=== PATIENT | male | born 2005 | race Caucasian/White ===

== ENCOUNTER 2024-03-01 10:32 | Emergency (ER) | payer MEDICAID, SELFPAY ==
[2024-03-01 10:37] VITALS: BP 115/74; PULSE 59; RESP 17; TEMP 36.8; O2SAT 99; BMI 17.1
--- NOTE | 2024-03-01 13:17 | ED_ITS ---
HPI - Wound/Laceration General: Chief Complaint: Wound/Laceration Stated Complaint: lac behind ear Time Seen by Provider: 03/01/24 13:09 Source: patient Mode of arrival: ambulatory Limitations: no limitations History of Present Illness: 18-year-old male who states this morning a closet door and fell and hit him behind his right ear on his head he denies any loss of consciousness has a slight headache denies any vomiting is unsure when his last tetanus was there is no bleeding at this time Associated symptoms: Denies chills, fever(s), nausea or vomiting Related Data Allergies Allergy/AdvReac Type Severity Reaction Status Date / Time No Known Allergies Allergy Verified 03/01/24 10:40 Review of Systems Const: Denies: fever(s), chills, body aches or change in appetite ENMT: Denies: throat pain or dental pain Card: Denies: chest pain Resp: Denies: dyspnea GI: Denies: abdominal pain, nausea, vomiting or diarrhea Musc: Denies: neck pain or back pain Skin/Breast: Denies: rash Neuro: Denies: headache(s) Physical Exam Const: COMMON NORMALS: no acute distress, patient oriented x3 and healthy appearing HENMT: COMMON NORMALS: normocephalic HEAD & SCALP: normocephalic Eye: COMMON NORMALS: Equal, round and reactive pupils present and EOMs intact bilaterally PUPIL: Yes Equal, round and reactive pupils present Neck/C-Spine: COMMON NORMALS: full ROM and supple Chest: COMMONS NORMALS: normal inspection of the chest Resp: COMMON NORMALS: normal respiratory effort Extremity: COMMON NORMALS: normal to inspection and full ROM Neuro: COMMON NORMALS: patient oriented x3, moves all extremities and no focal motor deficits Psych: COMMON NORMALS: mental status grossly normal, Normal thought process present and cooperative THOUGHT PROCESS: Normal thought process present Skin: COMMON NORMALS: no rashes or lesions noted NARRATIVE SKIN EXAM: Superficial laceration roughly 1 cm behind the right ear no bleeding at this time GENERAL SKIN EXAM: no rashes or lesions noted Course Vital Signs: Vital signs: Vital Signs Temperature 98.2 F 03/01/24 10:37 Pulse Rate 59 L 03/01/24 10:37 Respiratory Rate 17 03/01/24 10:37 Blood Pressure 115/74 03/01/24 10:37 Pulse Oximetry 99 03/01/24 10:37 Oxygen Delivery Me thod Room Air 03/01/24 10:37 MDM - Wound/Laceration Medical Decision Making Patient presents here with a superficial laceration does not require closed we will update his tetanus he has no signs of any major head injury does not require head CT he stable for discharge follow-up with PCP return if worsening. Medical Records I reviewed the patient's medical records. No radiology studies performed this visit Discharge Plan Discharge Patient Disposition: Home Clinical Impression: Laceration Condition: Stable Discharge Orders: Discharge ED (Routine); Ordered 03/01/24 Ordered By: Sabas Beth Discharge Diet: Advance as tolerated Discharge Activity: Resume usual activity Patient Instructions: Laceration (ED), Laceration Without Closure (ED) Coding Level of Care Code ED Experience Design Director for [facility]
--- NOTE | 2024-03-01 13:21 | PC.NURSE ---
PATIENT STATED THAT HE WANTED TO REFUSE TETANUS VACCINATION AT THIS TIME. NURSE GAVE EDUCATION ON PURPOSE AND REASON FOR VACCINATION AND EDUCATION FOR OUTCOMES. PATIENT STILL DECLINED VACCINATION. DR. MADERA INFORMED.
== END 2024-03-01 13:30 | disposition home or self-care (01) ==
PROVIDERS: Emergency Provider Emergency Medicine
DX: S01.01XA Laceration without foreign body of scalp, initial encounter (principal); W20.8XXA Other cause of strike by thrown, projected or falling object, initial encounter
CPT/HCPCS: 99283

== ENCOUNTER 2024-05-11 19:13 | Emergency (ER) | payer MEDICAID, SELFPAY ==
[2024-05-11 19:24] VITALS: BP 113/70; PULSE 53; RESP 16; TEMP 36.8; O2SAT 100
--- NOTE | 2024-05-11 20:04 | XRR_ITS ---
PROCEDURE INFORMATION: Exam: XR Chest Exam date and time: 05/11/2024 8:13 PM Age: 18 years old Clinical indication: Shortness of breath; Additional info: SOB TECHNIQUE: Imaging protocol: Radiologic exam of the chest. Views: 1 view. COMPARISON: No relevant prior studies available. FINDINGS: Lungs: Unremarkable. No consolidation. Pleural spaces: Unremarkable. No pleural effusion. No pneumothorax. Heart/Mediastinum: Unremarkable. No cardiomegaly. Bones/joints: Unremarkable. XR/XR chest 1V portable [id number] IMPRESSION: No acute findings.
--- NOTE | 2024-05-11 21:05 | W.ED.URI ---
HPI - URI/Sore Throat General: Chief Complaint: Airway/Esophagus Foreign Body Stated Complaint: inhaled something hurts to breathe and talk Time Seen by Provider: 05/11/24 20:20 Source: patient Mode of arrival: ambulatory Limitations: no limitations History of Present Illness: Patient is a 18-year-old male with no pertinent past medical history who reports to the emergency department complaining of inhaled foreign body a couple of hours prior to arrival. Patient states he was cleaning basement when he felt that he inhaled something suddenly, specifically thinking it was a metallic foreign body. He notes sudden onset of coughing afterwards that is since subsided. He notes that he has been able to continue keeping down fluids, has been handling his secretions well. Does not note any severe shortness of breath. He is breathing 100% on room air on triage, he notes he can still feel something tickling his throat. MD elicited complaint: other (Inhaled foreign body) Onset (ago): hour(s) Consistency: improved Severity: mild Associated symptoms: Deny abdominal pain, chills, chest pain, diarrhea, ear or mastoid pain, fever(s), headache(s), nausea or vomiting Related Data Allergies Allergy/AdvReac Type Severity Reaction Status Date / Time No Known Allergies Allergy Verified 05/11/24 19:28 Review of Systems General: Reports: 10 or more systems reviewed and unremarkable except in HPI and below Const: Denies: fever(s), chills or fatigue Eyes: Denies: change in vision ENMT: Denies: throat pain, ear or mastoid pain or nasal discharge Card: Denies: chest pain, palpitations, swelling of feet/ankles or lightheadedness Resp: Reports: non-productive cough and other (Inhaled foreign body); Denies: dyspnea or wheezing GI: Denies: abdominal pain, nausea, vomiting, diarrhea or constipation : Denies: flank pain, difficulty urinating, dysuria or urinary frequency Musc: Denies: neck pain, back pain or joint pain Skin/Breast: Denies: rash Neuro: Denies: headache(s), numbness in extremities or weakness in extremities Physical Exam Const: COMMON NORMALS: no acute distress and no limitations GENERAL APPEARANCE: cooperative, comfortable and well developed ORIENTATION/CONSCIOUSNESS: Yes awake OTHER: Nontoxic-appearing, breathing comfortably in no acute distress HENMT: COMMON NORMALS: normocephalic, atraumatic, hearing grossly normal bilaterally, Normal nasal mucous membranes and turbinates present, moist oral mucous membranes and oropharynx normal HEAD & SCALP: normocephalic and atraumatic NOSE: Normal nasal mucous membranes and turbinates present Eye: COMMON NORMALS: Equal, round and reactive pupils present, EOMs intact bilaterally and conjunctivae normal CONJUNCTIVA: Yes conjunctivae normal PUPIL: Yes Equal, round and reactive pupils present Neck/C-Spine: COMMON NORMALS: full ROM, supple and no JVD Resp: COMMON NORMALS: normal respiratory effort, No retractions, No use of accessory muscles and clear to auscultation bilaterally AUSCULTATION: clear to auscultation bilaterally Cardio: COMMON NORMALS: no JVD, regular rate, regular rhythm, No clicks present (Cardio), No murmurs present (Cardio) and No rub (Cardio) RATE: regular rate RHYTHM: regular rhythm Extremity: COMMON NORMALS: normal to inspection, full ROM and capillary refill normal Psych: COMMON NORMALS: mental status grossly normal and Normal thought process present THOUGHT PROCESS: Normal thought process present Skin: COMMON NORMALS: no rashes or lesions noted GENERAL SKIN EXAM: no rashes or lesions noted Course Vital Signs: Vital signs: Vital Signs Temperature 98.2 F 05/11/24 19:24 Pulse Rate 64 05/11/24 22:05 Respiratory Rate 16 05/11/24 22:05 Blood Pressure 113/70 05/11/24 19:24 Pulse Oximetry 99 05/11/24 22:05 Oxygen Delivery Me thod Room Air 05/11/24 19:24 MDM - URI/Sore Throat Medical Decision Making Patient reported inhaling unknown object in the basement while moving stuff around. Initially was coughing quite a bit but states that this has improved. His SpO2 was 100% on arrival, and physical exam unremarkable for any adventitious lung sounds. His chest x-ray was normal, and notably on recheck he is reporting more improvement. Unknown when he inhaled, could have envelopes an allergic type reaction. However instructed him to do supportive therapy and general return precautions were given. Lab Data Radiology Impressions Chest X-Ray 05/11/24 20:04 IMPRESSION: No acute findings. All radiology interpretation(s) finalized by discharge Discharge Plan Discharge Patient Disposition: Home Clinical Impression: Cough Qualifiers: Cough type: acute Qualified Code(s): R05.1 - Acute cough Condition: Stable Discharge Orders: Discharge ED (Routine); Ordered 05/11/24 Ordered By: Maxim Riggs Activity Restrictions/Additional Instructions: Please return with any fever, worsening shortness of breath, worsening cough, or other concerning symptoms you may have. Continue drinking plenty of fluids. Follow-up with primary care. Coding Level of Care Code ED Bilingual Medical Assistant for [facility]
[2024-05-11 22:05] VITALS: PULSE 64; RESP 16; O2SAT 99
== END 2024-05-11 22:06 | disposition home or self-care (01) ==
PROVIDERS: Emergency Provider Physician Assistant
DX: R05.1 Acute cough (principal)
CPT/HCPCS: 71045; 99283

== ENCOUNTER 2025-03-23 22:29 | Emergency (ER) | payer MEDICAID, SELFPAY ==
--- NOTE | 2025-03-23 22:31 | ED_ITS ---
HPI - General Adult General: Stated complaint: Left Hand finger Crushed Time Seen by Provider: 03/23/25 22:30 History of Present Illness: 19yo M w/cc of Related Data Previous Rx's ?Medication ?Instructions ?Recorded azithromycin 500 mg tablet 500 mg PO DAILY 5 days #5 t abs 02/03/25 prednisone 20 mg tablet 40 mg (2 x 20 mg) PO DAILY 5 days 02/03/25 #10 tabs Allergies Allergy/AdvReac Type Severity Reaction Status Date / Time No Known Allergies Allergy Verified 02/03/25 19:09 PFSH ED PFSH: Social History Smoking and tobacco/nicotine status: never used tobacco/nicotine Discharge Plan Discharge Condition: Stable Prescriptions: No Action prednisone 20 mg tablet 40 mg PO DAILY 5 Days Qty: 10 0RF azithromycin 500 mg tablet 500 mg PO DAILY 5 Days Qty: 5 0RF Print Language: Yemeni Coding Level of Care Code ED College Recruiter for [facility]
--- OUTSIDE RECORDS SUMMARY | 2025-03-23 22:38 | XMS_ITS | Patient Health Record ---
[facility] Address [address] [address] Care Team Providers Care Marketing Outreach Coordinator Name Role Phone Genevieve Mueller Unavailable [phone] Allergies No Known Allergies Reason For Referral No Information Social History Sex Assigned At : Social History Observation Description Sex Assigned At Male Plan Of Treatment No Information Insurance Providers Payer Name Payer Address Payer Phone Subscriber Number Group Number Insured Name Patient Relationship to Insured Coverage Start Date Coverage End Date [employer] [place] [address] [address] [place], [place] [id number] Karsten Davis Self - patient is the insured
[2025-03-23 22:43] VITALS: BP 131/81; PULSE 55; RESP 16; TEMP 36.6; O2SAT 97; BMI 19.5
--- NOTE | 2025-03-23 22:46 | XRR_ITS ---
PROCEDURE INFORMATION: Exam: XR Left Finger(s) Exam date and time: 03/23/2025 10:53 PM Age: 19 years old Clinical indication: Injury or trauma; Other: Crush injury; Crushing; Left; Ring finger; Additional info: 4th digit, please XR only digit, not the whole hand. TECHNIQUE: Imaging protocol: Radiologic exam of the left fingers. Views: Minimum 2 views. COMPARISON: No relevant prior studies available. FINDINGS: Bones/joints: Normal. Soft tissues: Normal. XR/XR finger LT min 2V [id number] IMPRESSION: No acute findings.
--- NOTE | 2025-03-23 22:47 | ED_ITS ---
HPI - General Adult General: Chief complaint: Wound/Laceration Stated complaint: Left Hand finger Crushed Time Seen by Provider: 03/23/25 22:30 History of Present Illness: 19yo M w/cc of crush injury from a machi ne at work to the distal L 4th digit and nail. Does not recall last tetanus update. No allergies to medications. Related Data Previous Rx's ?Medication ?Instructions ?Recorded azithromycin 500 mg tablet 500 mg PO DAILY 5 days #5 t abs 02/03/25 prednisone 20 mg tablet 40 mg (2 x 20 mg) PO DAILY 5 days 02/03/25 #10 tabs Allergies Allergy/AdvReac Type Severity Reaction Status Date / Time No Known Allergies Allergy Verified 02/03/25 19:09 PFS ED PFSH: Social History Smoking and tobacco/nicotine status: never used tobacco/nicotine Physical Exam Narrative: EXAM NARRATIVE: Vital signs were reviewed. Patient is alert and oriented. Patient is breathing comfortably, no increased WOB or accessory muscle use. SpO2 is above 95% on RA. No hypotension or tachycardia. There is a crush injury to the L 4th digit fingertip and subungual hematoma. Flexion/extension at PIP and DIP intact. Course Vital Signs: Vital signs: Vital Signs Temperature 97.8 F 03/23/25 22:43 Pulse Rate 55 L 03/23/25 22:43 Respiratory Rate 16 03/23/25 22:43 Blood Pressure 131/81 03/23/25 22:43 Pulse Oximetry 97 03/23/25 22:43 Oxygen Delivery Me thod Room Air 03/23/25 22:43 MDM - General Adult Medical Decision Making 19-year-old male with a chief complaint of crush injury to the distal tip of the L 4th digit. Frontal diagnosis includes but is limited to, fracture, dislocation, tendon tear or rupture, subungual hematoma, other. On exam, he is medically stable. Tetanus was updated. XR was reviewed and interpreted and patient does not have fx or dislocation. There is a crush injruy of the distal fingertip but nothing amenable to sutures, subungual hematoma is draining already on its own and nailbed is intact; I do not see cause to remove the nail. Would was cleaned, dressed, patient counseled on supportive care at home, given return precautions, patient was discharged in a stable condition. XR interpretation done by ED provider, pending radiology final review Discharge Plan Discharge Patient Disposition: Home Clinical Impression: Subungual hematoma Crush injury to finger Qualifiers: Encounter type: initial encounter Qualified Code(s): S67.10XA - Crushing injury of unspecified finger(s), initial encounter Condition: Stable Prescriptions: No Action prednisone 20 mg tablet 40 mg PO DAILY 5 Days Qty: 10 0RF azithromycin 500 mg tablet 500 mg PO DAILY 5 Days Qty: 5 0RF Discharge Orders: Discharge ED (Routine); Ordered 03/24/25 Ordered By: Karely Alston Patient Instructions: Opioid Safety, Pain Management, Patient Portal & Ricki Instructions, Subungual Hematoma (ED) Activity Restrictions/Additional Instructions: Please continue to monitor your condition closely at home. Take Ibuprofen 400mg and Tylenol 500-1000mg every six hours for pain and inflammation. Keep your wound clean and dry, change your bandage daily. Your nail may fall off in time. This is okay; it will regrow on its own within 3 to 6 months. If your condition worsens or additional concerns arise, please return promptly to the emergency department for reassessment. Follow up with your primary care doctor in one week. Print Language: French Coding Level of Care Code ED Karate Instructor for [facility]
[2025-03-23] MEDS: tetanus-diphtheria tox (adult) 0.5 mL SDV IM (23:01)
== END 2025-03-24 00:09 | disposition home or self-care (01) ==
PROVIDERS: Emergency Provider Emergency Medicine
DX: S67.195A Crushing injury of left ring finger, initial encounter (principal); S60.142A Contusion of left ring finger with damage to nail, initial encounter; X58.XXXA Exposure to other specified factors, initial encounter
CPT/HCPCS: 73140; 90471; 90714; 99283; J9999